=== PATIENT | male | born 1965 | race Caucasian/White ===

== ENCOUNTER 2019-03-12 08:56 | Emergency (ER) | payer BC, OTHER ==
[~2019-03-12] VITALS: Ht 185.4 cm; Wt 113.6 kg
[2019-03-12 09:01] VITALS: Ht 185.4 cm; Wt 113.6 kg
[2019-03-12] MEDS ORDERED: CHOLESTEROL MED (09:03)
[2019-03-12] MEDS ORDERED: ZANAFLEX4 MG PO (14:57)
[2019-03-12] MEDS ORDERED: HYDROCODON-ACE1 EAC2 PO (14:57)
[2019-03-12 15:20] VITALS: BP 127/89
== END 2019-03-12 15:20 | disposition home or self-care (01) ==
LOC: D.ER 08:56
DX: M51.36 Other intervertebral disc degeneration, lumbar region (principal); E78.5 Hyperlipidemia, unspecified